=== PATIENT | male | born 1975 | race Hispanic/Latino ===

== ENCOUNTER 2019-08-04 14:30 | Inpatient (IN) | payer BC, SELFPAY ==
[2019-08-04] MEDS ORDERED: NA CHLORIDE 0.9% 1,000 ML ONE (14:54)
[2019-08-04] MEDS ORDERED: ONDANSETRON 4 MG/2 ML VIAL ONE (14:54)
[2019-08-04] MEDS ORDERED: MECLIZINE HCL 12.5 MG TAB ONE (14:55)
[2019-08-04 15:07] LABS: Absolute Lymphocytes (CBC) 2.6 K/uL (0.7-4.9); Basophils % 0.4 % (0-1.3); Hematocrit 43.6 % (39.6-49.0); Lymphocytes % 16.2 % (15.3-44.8); MPV 8.5 fL (7.6-11.3)
[2019-08-04 15:26] LABS: ALT/SGPT 33 U/L (12-78); AST/SGOT 17 U/L (15-37); Albumin 3.9 g/dL (3.4-5.0); Alkaline Phosphatase 26 U/L (45-117); BUN Blood Urea Nitrogen 14 mg/dL (7-18); Bicarbonate 25 mmol/L (21-32); Bilirubin Direct < 0.1 mg/dL (0-0.2); Bilirubin Total 0.5 mg/dL (0.2-1.0); Glucose Level 130 mg/dL (74-106); Lipase 93 U/L (73-393); Potassium 3.5 mmol/L (3.5-5.1); Protein, Total 7.8 g/dL (6.4-8.2); Sodium Level 140 mmol/L (136-145); Troponin (Emerg Dept Use Only) < 0.02 ng/mL (0.0-0.045)
--- NOTE | 2019-08-04 15:41 | RAD REPORT ---
EXAM DESCRIPTION: CT - Head angio - 08/04/2019 3:25 pm CLINICAL HISTORY: DIZZINESSheadache TECHNIQUE: During dynamic enhancement using nonionic IV contrast, axial 1 millimeter thick images of the head were obtained. Sagittal and axial reconstruction images were generated using MIP technique and reviewed. All CT scans are performed using dose optimization technique as appropriate and may include automated exposure control or mA/KV adjustment according to patient size. COMPARISON: CT head same date FINDINGS: No aneurysm or vascular malformation identified. Superior sagittal sinus is patent. Both transverse sinuses are patent with the left transverse sinus dominant. Sinus opacification is not opt imal on this examination which was protocol for optimal arterial opacification. No stenosis, named branch occlusion, vasculitis or other significant vascular finding identifiable. Left vertebral artery is dominant. The patient has numerous calcifications along the falx and tentori um. These calcifications are in proximity to vessels but do not appear to be vascular in origin. Thes e probably reflect prior infectious or inflammatory processes. IMPRESSION: Negative CT angio head examination for acute or significant finding.
--- NOTE | 2019-08-04 15:42 | RAD REPORT ---
EXAM DESCRIPTION: CT - Head Brain Wo Cont - 08/04/2019 3:13 pm CLINICAL HISTORY: Headache, nausea and vomiting COMPARISON: None. TECHNIQUE: Axial 5 mm thick images of the head were obtained without IV contrast. All CT scans are performed using dose optimization technique as appropriate and may include automated exposure control or mA/KV adjustment according to patient size. FINDINGS: No intracranial hemorrhage, mass, edema or shift of mid-line structures. No acute infarcti on changes seen. No abnormal extra-axial fluid collections. Ventricles are normal. Numerous calcifica tions are present along the falx and tentorium. None are clearly associated with vascular structures. Mastoid air cells and visualized portions of the paranasal sinuses are clear. No acute bony findings. IMPRESSION: Negative non-contrast CT head examination for acute finding.
[2019-08-04] MEDS ORDERED: PROMETHAZINE 25 MG/ML VIAL ONE (15:48)
--- NOTE | 2019-08-04 15:54 | RAD REPORT ---
EXAM DESCRIPTION: CT - Neck Angio - 08/04/2019 3:25 pm CLINICAL HISTORY: dizzinessheadache TECHNIQUE: During dynamic enhancement using nonionic IV contrast, axial 2 mm thick images of the nec k were obtained. Sagittal and axial reconstruction images were generated using MIP technique and revi ewed. All CT scans are performed using dose optimization technique as appropriate and may include automated exposure control or mA/KV adjustment according to patient size. COMPARISON: CT head August 04, CT angio head August 04 FINDINGS: Imaging of the neck base region shows numerous densely opacified veins in the soft tissue s surrounding the spine in into the central canal. Injection was performed in the left upper extremit y and this prominent venous opacification is commonly seen as an artifact of the extrinsic compressio n of the venous system neck can occur with the arm in a raised position. Arterial tree opacification was not optimal but is sufficient for diagnostic purposes. The decrease i n overall arterial opacification may have resulted from extrinsic compression of the left-side venous system during the injection process. No aneurysm or vascular malformation identified. No carotid or vertebral dissection. Left vertebral a rtery is dominant. No stenosis, vasculitis or other significant carotid artery finding. Tortuosity of the distal vertebr obasilar vasculature noted. Overall no focal or suspicious finding of the vertebrobasilar vasculature . Patient has very pronounced thickening and dense calcification along the posterior longitudinal ligam ent most pronounced at the C4 level. This is substantial from C4 to the upper dens level. There is ve ry pronounced cord flattening and central spinal stenosis. Central canal is 4 mm at C2-3 and as low w as 3.5 mm at the C3-4 level. Spurring or posterior ligamentous thickening at C2-3 contributes to the stenosis. Prominent anterior spurring seen at C4-C7. IMPRESSION: CT angio portion of the examination is negative for dissection, stenosis, aneurysm or v ascular malformation. Patient has dense calcification and thickening of the posterior longitudinal ligament spanning the up per dens to the C4 level. 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 Followup outpatient MR imaging would be recommended to evaluate the severity of cord flattening and t o evaluate for cord signal abnormality.
[2019-08-04] MEDS ORDERED: DIAZEPAM 10 MG/2 ML INJ SYRINGE ONE (17:07)
--- NOTE | 2019-08-04 17:27 | RAD REPORT ---
EXAM DESCRIPTION: US - Abdomen Exam Limited - 08/04/2019 4:47 pm CLINICAL HISTORY: NAUSEA / VOMITING COMPARISON: No comparisons FINDINGS: No gallstones, sludge or other abnormalities within the gallbladder lumen. There is no wal l thickening or pericholecystic fluid. No common duct stone or biliary tree dilatation identified. IMPRESSION: Normal gallbladder and biliary tree ultrasound.
--- NOTE | 2019-08-04 18:24 | EDPHYS ---
Physician Documentation [facility] Name: Cong Mulligan Age: 44 yrs Sex: Male : 1975 Arrival Date: 08/04/2019 Time: 14:33 Bed 24 Private MD: ED Physician Rickey Judge HPI: 08/04 15:29 This 44 yrs old Male presents to ER via EMS with complaints of Nausea/Vomiting.rn 15:29 The patient presents to the emergency department with nausea, vomiting. Onset: The rn symptoms/episode began/occurred this morning. Possible causes: unknown. The symptoms are aggravated by nothing. The symptoms are alleviated by nothing. Severity of symptoms: At their worst the symptoms were moderate in the emergency department the symptoms have improved. The patient has not experienced similar symptoms in the past. Reports woke up this morning with nausea and dizziness, has had a few episodes of dizziness this past week at work but worse today, feels like having difficulty walking. + nausea/vomiting. Denies abd pain. Thinks ate some bad food last night. NO trauma. NO focal neuro complaints. . Historical: - Allergies: 14:36 No Known Allergies; tr5 - Home Meds: 14:36 None [Active]; tr5 - PMHx: 14:36 None; tr5 - PSHx: 14:36 None; tr5 - Immunization history:: Adult Immunizations up to date. - Social history:: Smoking status: unknown. - Ebola Screening: : No symptoms or risks identified at this time. - Family history:: not pertinent. - Hospitalizations: : No recent hospitalization is reported. ROS: 15:29 Constitutional: Negative for fever, chills, and weight loss, Eyes: Negative for injury, rn pain, redness, and discharge, Neck: Negative for injury, pain, and swelling, Cardiovascular: Negative for chest pain, palpitations, and edema, Respiratory: Negative for shortness of breath, cough, wheezing, and pleuritic chest pain, Abdomen/GI: Negative for abdominal pain, diarrhea, and constipation, MS/Extremity: Negative for injury and deformity, Skin: Negative for injury, rash, and discoloration, Neuro: Negative for headache, numbness, tingling, and seizure. Exam: 15:29 Constitutional: This is a well developed, well nourished patient who is awake, alert, rn holding emesis bag Head/Face: Normocephalic, atraumatic. Eyes: Pupils equal round and reactive to light, extra-ocular motions intact. + bilateral nystagmus noted ENT: dry mm Neck: Trachea midline, no thyromegaly or masses palpated, and no cervical lymphadenopathy. Supple, full range of motion without nuchal rigidity, or vertebral point tenderness. No Meningismus. Cardiovascular: Regular rate and rhythm with a normal S1 and S2. No gallops, murmurs, or rubs. Normal PMI, no JVD. No pulse deficits. Respiratory: Lungs have equal breath sounds bilaterally, clear to auscultation and percussion. No rales, rhonchi or wheezes noted. No increased work of breathing, no retractions or nasal flaring. Abdomen/GI: Soft, non-tender, with normal bowel sounds. No distension or tympany. No guarding or rebound. No evidence of tenderness throughout. MS/ Extremity: Pulses equal, no cyanosis. Neurovascular intact. Full, normal range of motion. Equal circumference. Neuro: Awake and alert, GCS 15, oriented to person, place, time, and situation. Cranial nerves II-XII grossly intact. Motor strength 5/5 in all extremities. Sensory grossly intact. Cerebellar exam normal. Normal gait. NOrmal finger to nose and heel to darby. Normal KEILA. Vital Signs: 14:36 BP 145 / 97; Pulse 62; Resp 18; Temp 97.7(O); Pulse Ox 100% on R/A; Weight 83.91 kg; tr5 Height 5 ft. 11 in. (180.34 cm); 15:56 BP 127 / 73; Pulse 82; Resp 16; Pulse Ox 99% on R/A; tr5 16:43 BP 141 / 88; Pulse 89; Resp 17; Pulse Ox 100% on R/A; tr5 17:18 BP 118 / 59; Pulse 61; Resp 14; Pulse Ox 100% ; lt1 18:00 BP 138 / 88; Pulse 75; Resp 16; Pulse Ox 100% on R/A; tr5 19:00 BP 123 / 80; Pulse 68; Resp 16; Pulse Ox 99% on R/A; tr5 14:36 Body Mass Index 25.80 (83.91 kg, 180.34 cm) tr5 MDM: 14:41 Patient medically screened. rn 18:20 Differential diagnosis: vertigo, vascular insufficiency, dehydration. Data reviewed: rn vital signs, nurses notes, lab test result(s), EKG, radiologic studies, CT scan, and as a result, I will admit patient. Counseling: I had a detailed discussion with the patient and/or guardian regarding: the historical points, exam findings, and any diagnostic results supporting the discharge/admit diagnosis, lab results, radiology results, the need for further work-up and treatment in the hospital. Response to treatment: the patient's symptoms have mildly improved after treatment, and as a result, I will admit patient. Admission orders: after a detailed discussion of the patient's condition and case, the admit orders are written by me. ED course: Ambulated patient, unable to ambulate, still reports severe dizziness and nausea/vomiting. CT head and angio no acute findings. 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 Admitted to Dr. Vail for intractable vertigo and vomiting. . 08/04 14:42 Order name: CBC with Diff; Complete Time: 15:28 08/04 14:42 Order name: Basic Metabolic Panel; Complete Time: 15:28 08/04 14:42 Order name: Troponin (emerg Dept Use Only); Complete Time: 15:28 08/04 14:42 Order name: LFT's; Complete Time: 15:28 08/04 14:42 Order name: Lipase; Complete Time: 15:28 08/04 19:14 Order name: CKMB Creatine Kinase MB [facility] 08/04 19:14 Order name: CKMB Creatine Kinase MB [facility] 08/04 19:14 Order name: CKMB Creatine Kinase MB [facility] 08/04 19:14 Order name: CKMB Creatine Kinase MB [facility] 08/04 19:14 Order name: Comprehensive Metabolic Panel [facility] 08/04 19:14 Order name: Comprehensive Metabolic Panel [facility] 08/04 19:14 Order name: Creatine Phosphokinase [facility] 08/04 19:14 Order name: Creatine Phosphokinase [facility] 08/04 19:14 Order name: Creatine Phosphokinase [facility] 08/04 14:42 Order name: CT Head Brain wo Cont; Complete Time: 15:46 rn 08/04 15:03 Order name: CT Head Angio; Complete Time: 15:46 rn 08/04 15:03 Order name: CT Neck Angio; Complete Time: 16:17 rn 08/04 15:29 Order name: US Abdomen Limited; Complete Time: 17:30 rn 08/04 19:14 Order name: Creatine Phosphokinase EDMT 08/04 19:14 Order name: Troponin I EDMT 08/04 19:14 Order name: Troponin I EDMT 08/04 19:16 Order name: CBC with Automated Diff EDMT 08/04 19:16 Order name: CBC with Automated Diff EDMT 08/04 19:16 Order name: Troponin I EDMT 08/04 14:42 Order name: IV Start; Complete Time: 14:56 rn 08/04 14:42 Order name: EKG; Complete Time: 14:44 rn 08/04 14:42 Order name: EKG - Nurse/Tech; Complete Time: 16:17 rn 08/04 19:15 Order name: CONS Pharmacy Consult EDMT 08/04 19:15 Order name: Clear Liquid EDMT Administered Medications: 15:00 Drug: NS 0.9% 1000 ml Route: IV; Rate: 1000 ml; Site: left antecubital; tr5 17:15 Follow up: Response: No adverse reaction; IV Status: Completed infusion; IV Intake: tr5 1000ml 15:00 Drug: Zofran 4 mg Route: IVP; Site: left antecubital; tr5 15:50 Follow up: Response: No change in condition; Nausea unchanged tr5 15:56 Drug: Phenergan 12.5 mg Route: IVP; Site: left antecubital; tr5 16:24 Follow up: Response: Nausea is decreased tr5 16:24 Drug: Meclizine 50 mg Route: PO; tr5 17:15 Follow up: Response: Marked relief of symptoms tr5 16:53 Drug: Phenergan 12.5 mg Route: IVP; Site: left antecubital; tr5 17:15 Follow up: Response: Nausea is decreased tr5 17:15 Drug: Valium 2 mg Route: IVP; Site: left antecubital; tr5 18:08 Follow up: Response: No adverse reaction; Marked relief of symptoms tr5 Disposition: 08/04/19 18:23 Hospitalization ordered by Rashel Vail for Observation. Preliminary diagnosis are Vertigo, Intractable Vomiting, Dehydration, Ataxia, unspecified. - Bed requested for Telemetry/MedSurg (observation). - Status is Observation. tr5 - Condition is Stable. - Problem is new. - Symptoms are unchanged. UTI on Admission? No Signatures: Dispatcher [employer] EDMS Rickey Judge MD MD rn Garcia, Cindy, RN RN cg Rodriguez, Tommie, RN RN tr5 Corrections: (The following items were deleted from the chart) 19:48 18:23 Hospitalization Ordered by Rashel Vail MD for Observation. Preliminary cg diagnosis is Vertigo; Intractable Vomiting; Dehydration; Ataxia, unspecified. Bed requested for Telemetry/MedSurg (observation). Status is Observation. Condition is Stable. Problem is new. Symptoms are unchanged. UTI on Admission? No. rn 20:58 19:48 08/04/2019 18:23 Hospitalization Ordered by Rashel Vail MD for Observation. tr5 Preliminary diagnosis is Vertigo; Intractable Vomiting; Dehydration; Ataxia, unspecified. Bed requested for Telemetry/MedSurg (observation). Status is Observation. Condition is Stable. Problem is new. Symptoms are unchanged. UTI on Admission? No. cg
--- NOTE | 2019-08-04 18:24 | ER ---
Nurse's Notes [facility] Name: Cong Mulligan Age: 44 yrs Sex: Male : 1975 Arrival Date: 08/04/2019 Time: 14:33 Bed 24 Private MD: Diagnosis: Vertigo;Intractable Vomiting;Dehydration;Ataxia, unspecified Presentation: 08/04 14:33 Presenting complaint: EMS states: About an hour ago pt started have some nausea and tr5 vomiting. Pt has a 20 to L AC. Transition of care: patient was not received from another setting of care. Onset of symptoms was August 04, 2019. Risk Assessment: Do you want to hurt yourself or someone else? Patient reports no desire to harm self or others. Initial Sepsis Screen: Does the patient meet any 2 criteria? No. Patient's initial sepsis screen is negative. Care prior to arrival: IV initiated. 20 GA, in the left antecubital area. 14:33 Method Of Arrival: EMS: [facility] tr5 14:33 Acuity: TITUS 3 tr5 15:08 Initial Sepsis Screen: Does the patient have a suspected source of infection? No. tr5 Patient's initial sepsis screen is negative. Historical: - Allergies: 14:36 No Known Allergies; tr5 - Home Meds: 14:36 None [Active]; tr5 - PMHx: 14:36 None; tr5 - PSHx: 14:36 None; tr5 - Immunization history:: Adult Immunizations up to date. - Social history:: Smoking status: unknown. - Ebola Screening: : No symptoms or risks identified at this time. - Family history:: not pertinent. - Hospitalizations: : No recent hospitalization is reported. Screenin:45 Abuse screen: Denies threats or abuse. Nutritional screening: No deficits noted. tr5 Tuberculosis screening: No symptoms or risk factors identified. Fall Risk None identified. Assessment: 14:45 General: Appears uncomfortable, Behavior is cooperative. Pain: Denies pain. Neuro: tr5 Level of Consciousness is awake, alert, Oriented to person, place, time, Lvn Lpn are equal bilaterally Moves all extremities. Gait is steady, Speech is normal, Facial symmetry appears normal, Cardiovascular: Heart tones present Capillary refill < 3 seconds Pulses are all present. Edema is absent. Rhythm is regular. Respiratory: Airway is patent Respiratory effort is even, unlabored, Respiratory pattern is regular, symmetrical. GI: Abdomen is round Bowel sounds present X 4 quads. Abd is soft X 4 quads Reports nausea, vomiting. : No signs and/or symptoms were reported regarding the genitourinary system. EENT: No signs and/or symptoms were reported regarding the EENT system. Derm: No signs and/or symptoms reported regarding the dermatologic system. Skin is intact, Skin is dry. Musculoskeletal: Capillary refill < 3 seconds, Range of motion: intact in all extremities. 15:56 Reassessment: Patient appears in no apparent distress at this time. Patient and/or tr5 family updated on plan of care and expected duration. Pain level reassessed. Pt still experiencing nausea and vomiting. Family at bedside. MD aware. 16:43 Reassessment: Patient and/or family updated on plan of care and expected duration. Pain tr5 level reassessed. Patient is alert, oriented x 3, equal unlabored respirations, skin warm/dry/pink. 18:00 Reassessment: No changes from previously documented assessment. Patient and/or family tr5 updated on plan of care and expected duration. Pain level reassessed. Patient is alert, oriented x 3, equal unlabored respirations, skin warm/dry/pink. 19:00 Reassessment: No changes from previously documented assessment. Patient and/or family tr5 updated on plan of care and expected duration. Pain level reassessed. Patient is alert, oriented x 3, equal unlabored respirations, skin warm/dry/pink. Pt family at bedside. Vital Signs: 14:36 BP 145 / 97; Pulse 62; Resp 18; Temp 97.7(O); Pulse Ox 100% on R/A; Weight 83.91 kg; tr5 Height 5 ft. 11 in. (180.34 cm); 15:56 BP 127 / 73; Pulse 82; Resp 16; Pulse Ox 99% on R/A; tr5 16:43 BP 141 / 88; Pulse 89; Resp 17; Pulse Ox 100% on R/A; tr5 17:18 BP 118 / 59; Pulse 61; Resp 14; Pulse Ox 100% ; lt1 18:00 BP 138 / 88; Pulse 75; Resp 16; Pulse Ox 100% on R/A; tr5 19:00 BP 123 / 80; Pulse 68; Resp 16; Pulse Ox 99% on R/A; tr5 14:36 Body Mass Index 25.80 (83.91 kg, 180.34 cm) tr5 ED Course: 14:33 Patient arrived in ED. tr5 14:36 Triage completed. tr5 14:36 Arm band placed on. tr5 14:41 Rickey Judge MD is Attending Physician. rn 14:45 Stephon Sun, MICHELLE is Primary Nurse. tr5 14:[address] via stretcher. tr5 14:45 Bed in low position. Call light in reach. Side rails up X 1. Adult w/ patient. Cardiac tr5 monitor on. Pulse ox on. NIBP on. Door closed. Noise minimized. 14:55 Initial lab(s) drawn, by me, sent to lab. Inserted IV placed in LAC from EMS. lt1 15:15 CT Head Brain wo Cont In Process Unspecified. EDMS 15:25 CT completed. Patient tolerated procedure well. Patient moved back from CT. bq 15:26 CT Head Angio In Process Unspecified. EDMS 15:26 CT Neck Angio In Process Unspecified. EDMS 16:47 Ultrasound completed. Patient tolerated well. sg3 16:47 US Abdomen Limited In Process Unspecified. EDMS 18:22 Rashel Vail MD is Hospitalizing Provider. rn 19:00 Awaiting bed assignment. tr5 19:00 transfer transportation to receiving facility. tr5 20:18 No provider procedures requiring assistance completed. Patient admitted, IV remains in tr5 place. Administered Medications: 15:00 Drug: NS 0.9% 1000 ml Route: IV; Rate: 1000 ml; Site: left antecubital; tr5 17:15 Follow up: Response: No adverse reaction; IV Status: Completed infusion; IV Intake: tr5 1000ml 15:00 Drug: Zofran 4 mg Route: IVP; Site: left antecubital; tr5 15:50 Follow up: Response: No change in condition; Nausea unchanged tr5 15:56 Drug: Phenergan 12.5 mg Route: IVP; Site: left antecubital; tr5 16:24 Follow up: Response: Nausea is decreased tr5 16:24 Drug: Meclizine 50 mg Route: PO; tr5 17:15 Follow up: Response: Marked relief of symptoms tr5 16:53 Drug: Phenergan 12.5 mg Route: IVP; Site: left antecubital; tr5 17:15 Follow up: Response: Nausea is decreased tr5 17:15 Drug: Valium 2 mg Route: IVP; Site: left antecubital; tr5 18:08 Follow up: Response: No adverse reaction; Marked relief of symptoms tr5 Intake: 17:15 IV: 1000ml; Total: 1000ml. tr5 Outcome: 18:23 Decision to Hospitalize by Provider. rn 19:00 Admitted to Med/surg accompanied by tech, via wheelchair, with chart, Report called to guicho Dubon RN 19:00 Condition: stable 19:00 Instructed on the need for admit. 20:58 Patient left the ED. tr5 Signatures: Dispatcher [employer] Selene Cao Roman, MD MD rn Godinez, Sarah 3 Tania Zhang 1 Stephon Sun RN RN tr5
[2019-08-04] MEDS ORDERED: ONDANSETRON 4 MG/2 ML VIAL IV PRN (19:09)
[2019-08-04] MEDS ORDERED: ACETAMINOPHEN 500 MG TAB PO PRN (19:09)
[2019-08-04] MEDS ORDERED: MORPHINE 2 MG/ML SYR IV PRN (19:09)
[2019-08-04] MEDS: NA CHLORIDE 0.9% 1,000 ML IV SCH (21:11)
[2019-08-04 21:50] VITALS: BMI 26.2
[2019-08-04 22:26] LABS: CKMB Creatine Kinase MB < 1.0 ng/mL (0.3-3.6); Creatine Phosphokinase 65 U/L (39-308); Troponin I < 0.02 ng/mL (0.0-0.045)
[2019-08-05 02:14] LABS: CKMB Creatine Kinase MB < 1.0 ng/mL (0.3-3.6); Creatine Phosphokinase 63 U/L (39-308)
--- NOTE | 2019-08-05 05:11 | HP ---
Date of Admission: 08/04/2019 Reason For Admission: Dizziness with nausea and vomiting. History Of Present Illness: This is a 44-year-old gentleman without past medical history, presented with history of 1 week of intermittent dizziness, fatigue, poor energy. There was no fall or loss of consciousness. Today, patient had episode of refractory nausea and vomiting throughout the morning with gastric pain due to severity of the nausea. Patient had 1 bowel movement also this morning. It was normal and he felt dizzy after the bowel movement. He did not have any diarrhea. There was no fever or chills. He is having poor appetite for the last few days. In the emergency room, he was ev aluated and CT of the head was negative. CT angio of the head and neck was negative as well. Ultras ound of the abdomen was negative. Labs done in the ER showed CBC within normal, except white blood c ells 15.8, neutrophils 77. CMP was normal except for glucose 130, , globulin 3.9. Patient was admitted for IV fluids and nausea control. Currently sitting in bed. He looks better. His mot her at the bedside. Past Medical History: None, except history of seizure when he was a kid and does not take any medica tion for now. Past Surgical History: None. Allergies: NONE. Social History: He is single. He has no kids. He works at . Does not smoke or use any d rugs. He does drink socially. Family History: Father of throat cancer and lung cancer. Mom alive and healthy. Review of Systems: Patient denies any fever, chills, night sweats. He has dizziness. He has lightheadedness. There is no loss of consciousness. Does not have any chest pain, shortness of breath. No cough or sputum. There is no PND or orthopnea. He does have nausea and vomiting and abdominal pain, but he has nausea only, otherwise no abdominal pain. No dysuria, frequency, urgency, hematuria. There is no history of depression, anxiety, seizure, or stroke. He does have remote history of seizure, but no stroke. No diarrhea or constipation as well. Physical Examination: Vital Signs: Blood pressure is 145/97, pulse 62, respiratory rate 18, temperature 97.7. General: Patient is alert and oriented x3. Does not look in any distress. HEENT: Atraumatic, normocephalic. PERRLA. Oral mucosa is moist. Neck: Supple. No JVD. No carotid bruits. Chest: Clear to auscultation. Good air entry. Heart: Regular rate and rhythm. Normal S1, S2 normal. No gallop or murmur. Abdomen: Soft, nontender. No masses. No hepatosplenomegaly. Positive bowel sounds. Extremities: No clubbing, cyanosis, or edema. No calf tenderness. Neurologic: Grossly intact. Cranial nerve exam 2 through 12 intact. Normal sensation. Normal refl exes. Normal muscle strength. Laboratory Data: Workup in the ER showed EKG, normal sinus rhythm, slightly shay at 59. Head CT wa s negative as well as head angio as well as neck angio negative. Abdominal ultrasound, normal pancre as, normal gallbladder and biliary tree. Assessment And Plan: This is a 44-year-old gentleman with remote history of seizure, presented with progressive dizziness and acute episode of nausea and vomiting this morning. 1.Nausea, vomiting, ?Gastroenteritis. we will admit patient to the floor, give him clear liquid, IV fluids, as well as nausea medication, for pain if needed. 2.History of dizziness, could be secondary to dehydration. We will hydrate patient. 3.Remote history of seizure. Patient off medication. No need for DVT prophylaxis. Patient is acti ve and young. Patient will be admitted for observation. ESTELLA Voice ID: [id number]
[2019-08-05 06:05] LABS: Absolute Lymphocytes (CBC) 1.7 K/uL (0.7-4.9); Basophils % 0.3 % (0-1.3); Hematocrit 37.3 % (39.6-49.0); Lymphocytes % 18.1 % (15.3-44.8); MPV 8.5 fL (7.6-11.3)
[2019-08-05 06:17] LABS: ALT/SGPT 25 U/L (12-78); AST/SGOT 9 U/L (15-37); Albumin 3.4 g/dL (3.4-5.0); Alkaline Phosphatase 17 U/L (45-117); BUN Blood Urea Nitrogen 11 mg/dL (7-18); Bicarbonate 30 mmol/L (21-32); Bilirubin Total 0.6 mg/dL (0.2-1.0); Glucose Level 81 mg/dL (74-106); Potassium 3.7 mmol/L (3.5-5.1); Protein, Total 6.9 g/dL (6.4-8.2); Sodium Level 144 mmol/L (136-145)
[2019-08-05] MEDS: NA CHLORIDE 0.9% 1,000 ML IV SCH ×2 (06:27→16:25)
[2019-08-05] MEDS ORDERED: MECLIZINE HCL 12.5 MG TAB PO PRN (09:28)
--- NOTE | 2019-08-05 09:33 | EKG ---
Test Date: 2019-08-04 Test Time: 16:13:53 Research Recruiter: ROGERT MEASUREMENT RESULTS: Intervals: Rate: 59 IL: 132 QRSD: 100 QT: 448 QTc: 443 [place]: P: 56 IL: 132 QRS: 48 T: 46 INTERPRETIVE STATEMENTS: Sinus bradycardia Minimal voltage criteria for LVH, may be normal variant Borderline ECG No previous ECG available for comparison Electronically Signed On 08-05-19 09:32:16 CDT by Cali Posey
[2019-08-05 11:55] LABS: CKMB Creatine Kinase MB < 1.0 ng/mL (0.3-3.6); Creatine Phosphokinase 71 U/L (39-308)
[2019-08-05] MEDS: dexAMETHasone 4 MG TAB PO SCH ×3 (12:39→23:05)
[2019-08-05 14:31] LABS: Urine Appearance CLEAR; Urine Bilirubin NEGATIVE (NEG); Urine Blood NEGATIVE (NEG); Urine Color YELLOW; Urine Glucose NEGATIVE (NEG); Urine Protein NEGATIVE (NEG); Urine Specific Gravity 1.015 (1.005-1.030)
[2019-08-05 14:52] LABS: Urine Bacteria <20 /HPF (NONE SEEN); Urine Culture Reflex Order NOT NEEDED; Urine RBC <5 /HPF (NONE SEEN)
--- NOTE | 2019-08-05 17:47 | PN ---
Subjective: Currently, patient is lying in bed. He looks comfortable. He has no more nausea or vom iting, but he continue to feel dizzy. He received meclizine this morning, but he did not fall so far . He does not have a good appetite. Review of Systems: Otherwise negative. Objective: Vital signs: Currently, blood pressure is 132/79, respiratory rate 16, pulse 59, tempera ture 98.5. General: Alert and oriented x3. Does not look in any distress. HEENT: Atraumatic, normocephalic. PERRLA. Oral mucosa is moist. Neck: Supple. No JVD. No bruits. Chest: Clear to auscultation. Good air entry. Heart: Regular rate and rhythm. S1, S2 normal. No gallop or murmur. Abdomen: Soft, nontender. No masses. No hepatosplenomegaly. Positive bowel sounds. Extremities: No clubbing, cyanosis, or edema. No calf tenderness. Neurologic: Grossly intact. Cranial nerve exam 2 through 12 intact. Normal sensation. Normal refl exes and muscle strength. Laboratory Data: Labs today; CBC was normal except for hemoglobin 13. CMP within normal. Cardiac e nzyme, all negative. CTA of the neck on the final report showed negative for dissection, stenosis, aneurysm, but the patie nt had disk calcification and thickening of the posterior longitudinal ligament spanning the upper de ns to the C4 level. There is critical spinal stenosis of 3 to 4 mm and cord flattening from the mid C2 body to mid C4 body level. MRI imaging recommended. Assessment And Plan: 1.Currently, in the last 2 weeks with a new finding of disk calcification and thickening of the post erior longitudinal ligament spanning the upper dens to the C4 level ? spinal stenosis of 3 to 4 mm an d cord flattening from the mid C2 body level to the mid C4 body level. We will consult Neurology imm ediately. We will start patient on Decadron 4 mg every 6 hours. Patient has no neurologic symptoms. He has had dizziness, which is apparently chronic. We will order his MRI and consult t o decide if patient needs immediate intervention and transfer to [place] for neurosurgery interventio n versus restrict to discharge him and make an arrangement for him to see Neurosurgery as outpatient. Again, patient does not have any neurologic symptoms beside dizziness. Otherwise, we will call for emergent transfer. 2.Nausea and vomiting, improved with Zofran. We will try patient on clear liquids and if he tolerat es that, we will advance to full liquids. 3.Remote history of seizure. Patient is off medication. No issues. 4.Discharge plan will depend on recommendation from Neurology and MRI of the brain. MEAGHAN/SAI Voice ID: [id number] Report ID: [id number]
[2019-08-06] MEDS: NA CHLORIDE 0.9% 1,000 ML IV SCH (01:21)
--- NOTE | 2019-08-06 01:45 | P.PN ---
Subjective Date of Service: 08/06/19 Primary Care Provider: Unknown Chief Complaint: Dizziness Subjective: Other (Patient reports dizziness improved. Nystagmus still present. No abdominal pain noted) Physical Examination - Vital Signs Temperature: 97.3 F Blood Pressure: 127/75 Pulse: 62 Respirations: 16 Pulse Ox (%): 98 - Physical Exam General: Alert, In no apparent distress, Oriented x3, Cooperative HEENT: Atraumatic, Other (Nystagmus noted with multiple movements of eyes bilateral) Neck: Supple Respiratory: Clear to auscultation bilaterally, Normal air movement Cardiovascular: Normal pulses, Regular rate/rhythm Gastrointestinal: Normal bowel sounds, Soft and benign, Non-distended, No tenderness, No masses, No rebound, No guarding Neurological: Normal speech, Normal strength at 5/5 x4 extr, Normal tone, Normal affect - Studies Medications List Reviewed: Yes Assessment & Plan Discharge Plan: Home Plan to discharge in: 24 Hours Physician Review Additional Text: Impression: Dizziness, nausea with nystagmus CT scan showing dense calcification and thickening of the posterior longitudinal ligament spanning the upper dens to the C4 level suspect critical spinal stenosis of 3-4 mm and cord flattening from the mid see 2 body level to the mid C4 body level Remote history of seizures Plan: Dizziness, nausea with nystagmus: Continue to monitor closely. MRI of C-spine and brain to be done tomorrow to further evaluate. Will also order EEG. Neurology consulted to further evaluate. Decadron started today. Patient responding to medication along with meclizine. Await further recommendations from neurology. Possible discharge within the next 24 hr to home verses neuro surgery for decompression. Hospitalist Team will continue his care. CT scan showing dense calcification and thickening of the posterior longitudinal ligament spanning the upper dens to the C4 level suspect critical spinal stenosis of 3-4 mm and cord flattening from the mid see 2 body level to the mid C4 body level: Patient to have MRI of C-spine tomorrow to further evaluate. Will also order EEG. Patient on Decadron with improvement noted. Will discuss further with Neurology to determine whether patient requires neuro surgical evaluation and treatment or can this be done as an outpatient. Remote history of seizures: Will order EEG. Await recommendations from neurology. Time Spent Managing Pts Care (In Minutes): 55
[2019-08-06] MEDS ORDERED: TRAMADOL HCL 50 MG TAB PO PRN (01:46)
[2019-08-06] MEDS ORDERED: GABAPENTIN 100 MG CAP PO PRN (01:46)
[2019-08-06] MEDS: NACHLORIDE 0.45% 1,000 ML IV SCH ×3 (01:50→23:54)
[2019-08-06] MEDS: dexAMETHasone 4 MG TAB PO SCH ×4 (05:43→23:54)
[2019-08-06 05:59] LABS: Thyroid Stimulating Hormone 0.235 uIU/mL (0.360-3.740)
[2019-08-06 07:49] LABS: Barbiturates NEGATIVE (NEGATIVE); Benzodiazepines NEGATIVE (NEGATIVE); Cocaine NEGATIVE (NEGATIVE); METHAMPHETAM NEGATIVE (NEGATIVE); Methadone NEGATIVE (NEGATIVE); Opiates NEGATIVE (NEGATIVE); Phencyclidine NEGATIVE (NEGATIVE); THC Cannibis NEGATIVE (NEGATIVE)
--- NOTE | 2019-08-06 09:25 | RAD REPORT ---
EXAM DESCRIPTION: MRI - Brain W/Wo Cont - 08/06/2019 9:00 am CLINICAL HISTORY: DIZZINESS, NYSTAGMUS Headache, drowsiness COMPARISON: MRA Head Wo Cont dated 08/06/2019; C Spine W/Wo Cont dated 08/06/2019; MRA Neck W/Wo Cont da es 08/06/2019; Head angio dated 08/04/2019; Neck Angio dated 08/04/2019; Head Brain Wo Cont dated 08/04/2019 TECHNIQUE: Multi-sequence, multiplanar MR imaging of the brain was performed with contrast. FINDINGS: No intracranial hemorrhage, hydrocephalus, or extra-axial fluid collection. No edema or sh ift of midline structures. No intracranial mass. DWI is negative for acute CVA. The midline structures are normally formed. Mastoid air cells and paranasal sinuses are clear. Post-contrast images show no abnormal enhancement to suggest tumor or infection. IMPRESSION: No acute or concerning intracranial abnormalities. No pathologic post-contrast enhancement suspected.
--- NOTE | 2019-08-06 09:28 | RAD REPORT ---
EXAM DESCRIPTION: MRI - MRA Head Wo Cont - 08/06/2019 9:00 am CLINICAL HISTORY: dizziness, nystagmus CVA symptomology COMPARISON: Head angio dated 08/04/2019 FINDINGS: 3D noncontrast [id number] MR angiography of the [place] was performed. No aneurysm, flow-limiting stenosis or vascular malformation is seen. Forward flow seen in codominant vertebral arteries. The visualized dural venous sinuses appear patent. IMPRESSION: No significant flow abnormality of the [place] is identified.
--- NOTE | 2019-08-06 09:35 | RAD REPORT ---
EXAM DESCRIPTION: MRI - MRA Neck W/Wo Cont - 08/06/2019 9:01 am CLINICAL HISTORY: DIZZINESS, NYSTAGMUS COMPARISON: Neck Angio dated 08/04/2019 FINDINGS: Contrast enhance 2D [id number] MR angiography of the neck vessels was performed. A left aortic arch is noted. Both subclavian arteries and common carotid arteries are patent. Notable venous contamination is seen on the left. This limits the quality of the study. Both internal carotid arteries are widely patent. There is no evidence of internal carotid artery dana nosis. A Ontiveros right subclavian artery is noted, normal variant anatomy. Antegrade flow is seen in both vertebral arteries. IMPRESSION: No significant carotid stenosis identified.
--- NOTE | 2019-08-06 09:52 | RAD REPORT ---
EXAM DESCRIPTION: MRI - C Spine W/Wo Cont- 08/06/2019 9:00 am CLINICAL HISTORY: spinal stenosis on MRI Neck pain, radiculopathy COMPARISON: CT HEAD SPINE CAP W CONTRAST dated 05/21/2011 FINDINGS: Cervical vertebral bodies are normal in height and alignment. No suspicious marrow edema or marrow replacing process. Mild edema is noted along the anterior aspect of the C4 and C5 vertebral bodies likely degenerative in etiology. No fracture or traumatic subluxat ion. Prominent ossification of the posterior longitudinal ligament is noted spanning the C1- C5 levels. Th is results in severe central canal stenosis at the C3-4 level with marked cord flattening and cord ed camilla present. The central canal at this level measures 4 mm in anterior- posterior dimension. At C5-6, a right paracentral disc protrusion is noted measuring 5 mm in anterior- posterior dimension and resulting in moderate central canal stenosis to 8 mm. Prominent posterior annular fissure is ass ociated with this. Mild right exit foraminal narrowing. At C6-7, a right paracentral moderate disc protrusion with posterior annular fissure is present atten uating the anterior subarachnoid space and contacting and flattening the anterior left hemicord. Cent ral canal is narrowed to 8 mm. Left uncovertebral spurring is present narrowing the left exit foramen . At C7-T1, a 3 mm left paracentral disc protrusion is present. No significant canal or foraminal steno sis. No pathologic post-contrast enhancement seen. IMPRESSION: Upper cervical spine OPLL is noted resulting in severe central canal stenosis with cord edema, most severe at C3-4. Additional moderately severe spondylosis is present involving the mid and lower cervical levels as de tailed. No pathologic areas of post-contrast enhancement to suggest tumor or infection.
[2019-08-06] MEDS: FOLIC ACID 1 MG TABLET PO SCH (11:55)
--- NOTE | 2019-08-06 12:09 | P.DS ---
Admission Date: 08/06/19 Discharge Date: 08/06/19 Primary Care Provider: Unknown Disposition: TRANSFER TO [facility] Discharge Condition: GOOD Reason for Admission: Dizziness Consultations: Dr. Olivas - Vinicio (1) Vertigo Current Visit: Yes Status: Acute (2) Cervical spondylosis Current Visit: Yes Status: Acute (3) Central stenosis of spinal canal Current Visit: Yes Status: Acute Brief History of Present Illness: This is a 44-year-old male that was admitted through the emergency department initially for vertigo. Patient had sudden onset dizziness, ataxia, nausea, vomiting, unsteady gait while at home. Patient was hemodynamically stable upon arrival tumors department. Patient was assessed and had a CT of the head and C- spine completed. CT head unremarkable. CT C-spine showed cervical spondylosis with flattening in narrowing of the cervical region at the C2 through C4 region. Patient denied focal neurologic deficits such as weakness, paralysis, and numbness, tingling , or radiculopathy. Patient was admitted to the hospital team here. Patient was IV hydrated, given meclizine, given nausea medicine, given steroids. Patient currently is feeling better at rest but still with horizontal and vertical nystagmus along with unsteady gait. Patient underwent MRA MRI of the head and neck with unremarkable vasculature. Patient also underwent MRI of the C-spine. Again showing upper cervical spine 0PLL with cord edema most severe at C3-C4. Dr. austin was consulted and agreed that patient needed to be transferred to [facility] for neuro surgical evaluation. Hospital Course: Throughout the hospital course patient has remained hemodynamically stable and improving. No new focal neurologic deficits noticed on physical exam. Ultimately after receiving official dictations on MRI and MRA it was decided the patient needed emergent neurosurgical evaluation to assess stability of the spinal cord of the cervical region. [facility] was contacted. Dr. Roldan Neurosurgery and Dr. Jorgensen [facility] medicine were both consulted and accepted patient. Patient was notified of the imaging findings and need for neurosurgical evaluation. Patient agreed to be transferred to [facility]. Vital Signs/Physical Exam: Temp Pulse Resp BP Pulse Ox 97.8 F 68 16 148/69 H 97 08/06/19 08:00 08/06/19 08:00 08/06/19 08:00 08/06/19 08:00 08/06/19 08:00 General: Alert, In no apparent distress, Oriented x3, Cooperative HEENT: Normocephalic, PERRLA, Mucous membr. moist/pink, EOMI Neck: Supple, 2+ carotid pulse no bruit, JVD not distended, No Thyromegaly, No LAD Respiratory: Clear to auscultation bilaterally, Normal air movement Cardiovascular: No edema, Normal pulses, Regular rate/rhythm, Normal S1 S2, No gallops, No rubs, No murmurs Capillary refill: <2 Seconds Gastrointestinal: Normal bowel sounds, Soft and benign, Non-distended, No ascites, No tenderness, No masses, No rebound, No guarding Musculoskeletal: No clubbing, No swelling, No contractures, No erythema, No tenderness, No warmth Integumentary: No rashes, No breakdown, No significant lesion, No tenderness/ swelling, No erythema, No warmth, No cyanosis Neurological: Normal speech, Normal strength at 5/5 x4 extr, Normal tone, Sensation intact, Cranial nerves 3-12 intact, Normal reflexes 2+, Normal affect , Abnormal gait Lymphatics: No axilla or inguinal lymphadenopathy Laboratory Data at Discharge: WBC 9.3 K/uL (4.3-10.9) D 08/05/19 05:04 Hgb 13.0 g/dL (13.6-17.9) L 08/05/19 05:04 Hct 37.3 % (39.6-49.0) L 08/05/19 05:04 Plt Count 190 K/uL (152-406) D 08/05/19 05:04 Sodium 144 mmol/L (136-145) 08/05/19 05:04 Potassium 3.7 mmol/L (3.5-5.1) 08/05/19 05:04 BUN 11 mg/dL (7-18) 08/05/19 05:04 Creatinine 0.88 mg/dL (0.55-1.3) 08/05/19 05:04 Glucose 81 mg/dL (74-106) 08/05/19 05:04 Total Bilirubin 0.6 mg/dL (0.2-1.0) 08/05/19 05:04 AST 9 U/L (15-37) L 08/05/19 05:04 ALT 25 U/L (12-78) 08/05/19 05:04 Alkaline Phosphatase 17 U/L (45-117) L 08/05/19 05:04 Troponin I < 0.02 ng/mL (0.0-0.045) 08/05/19 01:32 Lipase 93 U/L (73-393) 08/04/19 14:53 Home Medications: Ibuprofen 200 mg PO DAILY PRN 08/04/19 Patient Discharge Instructions: Patient being transfered to [facility] Diet: Regular Activity: Fall precautions Time spent managing pt's care (in minutes): 45
[2019-08-06] MEDS ORDERED: ENOXAPARIN 40 MG/0.4 ML SQ SCH (17:00)
[2019-08-07] MEDS: dexAMETHasone 4 MG TAB PO SCH ×3 (05:36→18:15)
[2019-08-07] MEDS: NACHLORIDE 0.45% 1,000 ML IV SCH (08:00)
[2019-08-07] MEDS: FOLIC ACID 1 MG TABLET PO SCH (08:07)
--- NOTE | 2019-08-07 16:11 | P.PN ---
Subjective Date of Service: 08/07/19 Primary Care Provider: Unknown Chief Complaint: Dizziness Subjective: No new changes, C/O voiced (Worried about getting transferred to the [facility] and wonders when he will go there) Review of Systems 10-point ROS is otherwise unremarkable Physical Examination - Vital Signs Temperature: 98.8 F Blood Pressure: 117/74 Pulse: 64 Respirations: 16 Pulse Ox (%): 99 - Physical Exam General: Alert, In no apparent distress HEENT: Atraumatic, PERRLA, EOMI Neck: Supple, JVD not distended Respiratory: Clear to auscultation bilaterally, Normal air movement Cardiovascular: Regular rate/rhythm, Normal S1 S2 Gastrointestinal: Normal bowel sounds, No tenderness Musculoskeletal: Tenderness Integumentary: No rashes Neurological: Normal speech, Normal tone, Normal affect, Abnormal strength, Abnormal reflexes Lymphatics: No axilla or inguinal lymphadenopathy - Studies Medications List Reviewed: Yes Assessment And Plan - Current Problems (Diagnosis) (1) Edema, spinal cord Current Visit: Yes Status: Acute Plan: Severe Spinal Cord Edema at the level of C3-C4 2.2 to Spinal Canal Stenosis -Decadron ordered at this time -No worsening of the symptoms -Neurology consulted. Appreciate Reccs -No Neurosurgery available, Thus patient awaiting Bed at the higher level of care facility. spoke to the [facility] DT regarding the urgency to transfer the patient states they are at saturation and will have a bed when they have a bed. (2) Spinal stenosis Current Visit: Yes Status: Acute Qualifiers: Spinal region: cervical Qualified Code(s): M48.02 - Spinal stenosis, cervical region (3) Cervical spondylosis Current Visit: Yes Status: Chronic Discharge Plan: Transfer Plan to discharge in: 24 Hours - Code Status/Comfort Care Code Status Assessed: Yes Critical Care: No
[2019-08-08] MEDS: dexAMETHasone 4 MG TAB PO SCH ×4 (00:07→17:23)
[2019-08-08] MEDS: FOLIC ACID 1 MG TABLET PO SCH (08:24)
[2019-08-08 16:57] VITALS: O2SAT 96
--- NOTE | 2019-08-08 17:48 | P.PN ---
Subjective Date of Service: 08/08/19 Primary Care Provider: Unknown Chief Complaint: Vertigo Subjective: No new changes Patient stated the tightness he felt on the back of his neck has resolved and feels the steroid is helping him. He has no other complaint today. Review of Systems 10-point ROS is otherwise unremarkable Physical Examination - Vital Signs Temperature: 97.1 F Blood Pressure: 119/72 Pulse: 67 Respirations: 18 Pulse Ox (%): 99 - Physical Exam General: Alert, In no apparent distress, Oriented x3 HEENT: Atraumatic, Normocephalic, Mucous membr. moist/pink Neck: Supple, JVD not distended, No Thyromegaly Respiratory: Clear to auscultation bilaterally, Normal air movement Cardiovascular: No edema, Regular rate/rhythm, Normal S1 S2, No murmurs Capillary refill: <2 Seconds Gastrointestinal: Normal bowel sounds, Soft and benign, No tenderness Musculoskeletal: No clubbing, No swelling, No erythema Integumentary: No rashes Neurological: Normal strength at 5/5 x4 extr, Cranial nerves 3-12 intact, Normal affect - Studies Medications List Reviewed: Yes Assessment And Plan Physician Review Additional Text: Impression: Dizziness, nausea with nystagmus CT scan showing dense calcification and thickening of the posterior longitudinal ligament spanning the upper dens to the C4 level suspect critical spinal stenosis of 3-4 mm and cord flattening from the mid see 2 body level to the mid C4 body level Remote history of seizures Plan: Vertigo, nausea with nystagmus: -likely related to vertebrobasilar insufficiency. -continue supportive measures. Cervical Spinal cord stenosis -seen by neurology -Continue Decadron -patient is planned for transferred to [facility] to be evaluated by a neurosurgeon. -he has been accepted for transfer pending bed availability.
[2019-08-08 20:55] VITALS: BP 120/70; TEMP 96.8
[2019-08-10 05:25] LABS: HBsAG Nonreactive (Nonreactive)
== END 2019-08-08 20:40 | disposition short-term general hospital (02) | DRG 551 ==
LOC: ER 14:30 → SUPCPDRO 14:30 → ERHOLD 19:55 → 4TH 20:22 → OBSVTOIN 08-06 10:09
PROVIDERS: ADMIT Internal Medicine; ATTEND Internal Medicine
DX: M48.02 Spinal stenosis, cervical region (principal); G95.19 Other vascular myelopathies; R42 Dizziness and giddiness; H55.00 Unspecified nystagmus; M47.892 Other spondylosis, cervical region; R26.9 Unspecified abnormalities of gait and mobility
CPT/HCPCS: 36415; 70450; 70496; 70498; 70544; 70549; 70553; 72156; 76705; 80048; 80053; 80074; 80076; 80307; 81001; 82550; 82553; 83690; 84439; 84443; 84484; 85025; 93005; 95816; 96361; 96374; 96375; 99285; A9577; G0378; J1650; J2405; J2550; J3360; J7030; Q9967